=== PATIENT | male | born 1990 | race Caucasian/White ===

== ENCOUNTER 2021-01-26 10:21 | Emergency (ER) | payer BC ==
[2021-01-26] MEDS ORDERED: Sodium Chloride 0.9% 10 ML Syringe FLUSH PRN (11:45)
[2021-01-26] MEDS ORDERED: Ondansetron 4 MG/2 ML SDV IVPUSH ONE (11:45)
[2021-01-26] MEDS ORDERED: Sodium Chloride 0.9% 1,000 ML IV SCH (11:45)
[2021-01-26] MEDS ORDERED: Albuterol/Ipratropium 3.0-0.5 MG/3 ML Neb Soln NEB ONE (11:47)
[2021-01-26] MEDS ORDERED: Dexamethasone 4 MG/ML SDV IVPUSH ONE (11:47)
--- NOTE | 2021-01-26 12:46 | CR ---
Chest: Frontal view of the chest was obtained. Comparison: Prior chest x-ray of 09/21/14. Heart size and mediastinum are within normal limits. Patchy areas of increased density are seen throughout both sides of the chest. Bony structures are unremarkable for the patient's age. Impression: 1. Findings suspicious for COVID pneumonia. Please correlate. Diagnostic code #3
[2021-01-26 15:13] VITALS: BP 119/72; PULSE 75
--- NOTE | 2021-01-26 15:19 | EDM.PDOC ---
ED HPI GENERAL MEDICAL PROBLEM - General Chief Complaint: Respiratory Problem Stated Complaint: COVID +/LOW O2 Time Seen by Provider: 01/26/21 11:33 Source of Information: Reports: Patient History Limitations: Reports: No Limitations - History of Present Illness INITIAL COMMENTS - FREE TEXT/NARRATIVE: The patient presents with cough, shortness of breath and low oxygen saturations. He is COVID 19 positive. He got the monoclonal antibodies yesterday. He has a pulse oximeter and it was low at 85% so he came in to be seen. He has no chest pain. He has no vomiting but he has nausea. He has no abdominal pain. He has chills but no fever. He has no diarrhea. He does not smoke. Onset: Gradual Duration: Day(s): Severity: Moderate Improves with: Reports: None Worsens with: Reports: None Associated Symptoms: Reports: Cough, Nausea/Vomiting, Shortness of Breath. Denies: Chest Pain - Related Data Allergies Allergy/AdvReac Type Severity Reaction Status Date / Time No Known Allergies Allergy Verified 01/26/21 11:30 Home Meds: Home Meds Albuterol [Proventil HFA] 2 puff INH Q4H PRN #1 inhaler 01/26/21 [Rx] Dulaglutide [Trulicity] 0.5 ml SUBCUT WEEKLY 01/26/21 [History] dexAMETHasone [Dexamethasone] 6 mg PO DAILY #10 tab 01/26/21 [Rx] metFORMIN [Glucophage XR] 500 mg PO QID 01/26/21 [History] Past Medical History Gastrointestinal History: Reports: GERD Endocrine/Metabolic History: Reports: Diabetes, Type II Social & Family History - Family History Family Medical History: No Pertinent Family History ED ROS GENERAL - Review of Systems Review Of Systems: See Below Constitutional: Reports: Chills, Malaise, Weakness, Fatigue. Denies: Fever HEENT: Reports: No Symptoms Respiratory: Reports: Shortness of Breath, Cough Cardiovascular: Reports: No Symptoms Endocrine: Reports: No Symptoms GI/Abdominal: Reports: Nausea. Denies: Abdominal Pain, Vomiting : Reports: No Symptoms Musculoskeletal: Reports: No Symptoms ED EXAM, GENERAL - Physical Exam Exam: See Below Exam Limited By: No Limitations General Appearance: Alert, No Apparent Distress Ears: Normal External Exam Nose: Normal Inspection Head: Atraumatic, Normocephalic Neck: Normal Inspection Respiratory/Chest: No Respiratory Distress, Decreased Breath Sounds Cardiovascular: Regular Rate, Rhythm, No Edema, No Murmur GI/Abdominal: Soft, Non-Tender, No Organomegaly, No Mass Back Exam: Normal Inspection Extremities: Normal Inspection Neurological: Alert, No Motor/Sensory Deficits Course - Vital Signs Last Recorded V/S: Last Vital Signs Temp Pulse 75 01/26/21 15:10 Resp 20 01/26/21 15:10 BP 119/72 01/26/21 15:10 Pulse Ox 87 L 01/26/21 15:10 - Orders/Labs/Meds Orders: Active Orders 24 hr Category Date Time Status Cardiac Monitoring [RC] . DIRECTED Care 01/26/21 11:45 Active Peripheral IV Care [RC] . DIRECTED Care 01/26/21 11:47 Active RT Aerosol Therapy [RC] ASDIRECTED Care 01/26/21 11:47 Active Sodium Chloride 0.9% [Normal Saline] 1,000 ml Med 01/26/21 11:45 Active IV .BOLUS Sodium Chloride 0.9% [Saline Flush] Med 01/26/21 11:45 Active 10 ml FLUSH ASDIRECTED PRN ED Antiemetic Medication Reflex [OM.PC] Stat Oth 01/26/21 11:46 Ordered Peripheral IV Insertion Adult [OM.PC] Stat Oth 01/26/21 11:45 Ordered Medication Orders Sodium Chloride (Normal Saline) 1,000 mls @ 1,000 mls/hr IV .BOLUS EDIE Last Admin: 01/26/21 12:02 Dose: 1,000 mls/hr Documented by: JASON Sodium Chloride (Sodium Chloride 0.9% 10 Ml Syringe) 10 ml FLUSH ASDIRECTED PRN PRN Reason: Keep Vein Open Last Admin: 01/26/21 12:02 Dose: 10 ml Documented by: JASON Labs: Laboratory Tests 01/26/21 01/26/21 01/26/21 Range/Units 12:05 12:05 12:05 WBC 8.12 (4.23-9.07) K/mm3 RBC 4.97 (4.63-6.08) M/mm3 Hgb 14.3 (13.7-17.5) gm/dl Hct 43.3 (40.1-51.0) % MCV 87.1 (79.0-92.2) fl MCH 28.8 (25.7-32.2) pg MCHC 33.0 (32.2-35.5) g/dl RDW Std Deviation 40.4 (35.1-43.9) fL Plt Count 273 (163-337) K/mm3 MPV 9.4 (9.4-12.3) fl Neut % (Auto) 58.8 (34.0-67.9) % Lymph % (Auto) 31.4 (21.8-53.1) % [place] % (Auto) 9.2 (5.3-12.2) % Eos % (Auto) 0 L (0.8-7.0) Baso % (Auto) 0.4 (0.1-1.2) % Neut # (Auto) 4.77 (1.78-5.38) K/mm3 Lymph # (Auto) 2.55 (1.32-3.57) K/mm3 [place] # (Auto) 0.75 (0.30-0.82) K/mm3 Eos # (Auto) 0.00 L (0.04-0.54) K/mm3 Baso # (Auto) 0.03 (0.01-0.08) K/mm3 D-Dimer, Quantitative 0.37 (0.19-0.50) mg/L Sodium 142 (136-145) mEq/L Potassium 3.5 (3.5-5.1) mEq/L Chloride 103 (98-107) mEq/L Carbon Dioxide 27 (21-32) mEq/L Anion Gap 15.5 H (5-15) BUN 10 (7-18) mg/dL Creatinine 0.9 (0.7-1.3) mg/dL Est Cr Clr Drug Dosing TNP Estimated GFR (MDRD) > 60 (>60) mL/min BUN/Creatinine Ratio 11.1 L (14-18) Glucose 111 H (70-99) mg/dL Calcium 8.7 (8.5-10.1) mg/dL Total Bilirubin 0.8 (0.2-1.0) mg/dL AST 37 (15-37) U/L ALT 80 H (16-63) U/L Alkaline Phosphatase 71 (46-116) U/L Troponin I < 0.017 (0.00-0.056) ng/mL C-Reactive Protein 11.0 H* (<1.0) mg/dL Total Protein 7.7 (6.4-8.2) g/dl Albumin 3.6 (3.4-5.0) g/dl Globulin 4.1 gm/dL Albumin/Globulin Ratio 0.9 L (1-2) Meds: Medications Generic Name Dose Route Start Last Admin Trade Name Subhash PRN Reason Stop Dose Admin Sodium Chloride 1,000 mls @ 1,000 mls/hr 01/26/21 11:45 01/26/21 12:02 Normal Saline IV 1,000 mls/hr .BOLUS EDIE Administration Sodium Chloride 10 ml 01/26/21 11:45 01/26/21 12:02 Sodium Chloride 0.9% 10 Ml Syringe FLUSH 10 ml ASDIRECTED PRN Administration Keep Vein Open Discontinued Medications Generic Name Dose Route Start Last Admin Trade Name Subhash PRN Reason Stop Dose Admin Albuterol/Ipratropium 3 ml 01/26/21 11:47 01/26/21 11:53 Albuterol/Ipratropium 3.0-0.5 Mg/3 Ml Neb Soln NEB 01/26/21 11:48 3 ml ONETIME ONE Administration Dexamethasone 6 mg 01/26/21 11:47 01/26/21 12:02 Dexamethasone 4 Mg/Ml Sdv IVPUSH 01/26/21 11:48 6 mg ONETIME ONE Administration Ondansetron HCl 4 mg 01/26/21 11:45 01/26/21 12:02 Ondansetron 4 Mg/2 Ml Sdv IVPUSH 01/26/21 11:46 4 mg ONETIME ONE Administration - Re-Assessments/Exams Free Text/Narrative Re-Assessment/Exam: 01/26/21 15:21 I ordered an IV NS 1L bolus, zofran 4mg IV, dexamethasone 6mg IV, duoneb, CXR and labs. His CXR shows findings suspicious for COVID pneumonia. His CBC and CMP look good. His D-dimer was negative. His troponin was negative. His CRP was elevated at 11. His oxygen saturations did drop to 87%. I will get him some home oxygen, albuterol inhaler and dexamethasone. Departure - Departure Time of Disposition: 15:25 Disposition: Home, Self-Care 01 Condition: Fair Clinical Impression: COVID-19, Pneumonia due to COVID-19 virus - Discharge Information *PRESCRIPTION DRUG MONITORING PROGRAM REVIEWED*: Not Applicable *COPY OF PRESCRIPTION DRUG MONITORING REPORT IN PATIENT [place]: Not Applicable Prescriptions: dexAMETHasone [Dexamethasone] 6 mg PO DAILY #10 tab Albuterol [Proventil HFA] 2 puff INH Q4H PRN #1 inhaler PRN Reason: Shortness Of Breath Referrals: PCP,None [Primary Care Provider] - Holden Hanna MD [Physician] - 1 Week Forms: ED Department Discharge Additional Instructions: Take the dexamethasone 1.5pills daily until gone. Use the albuterol 2 puffs every 6 hours as needed for shortness of breath. Wear the oxygen all the time for few days. Please return if you are worse. Sepsis Event Note (ED) - Focused Exam Vital Signs: Vital Signs Pulse Resp BP Pulse Ox Pulse Ox 01/26/21 15:10 75 20 119/72 87 L 01/26/21 11:54 95 01/26/21 11:26 90 16 126/81 95 - My Orders Last 24 Hours: My Active Orders 01/26/21 11:45 Cardiac Monitoring [RC] . DIRECTED Sodium Chloride 0.9% [Normal Saline] 1,000 ml IV .BOLUS Sodium Chloride 0.9% [Saline Flush] 10 ml FLUSH ASDIRECTED PRN Peripheral IV Insertion Adult [OM.PC] Stat 01/26/21 11:46 ED Antiemetic Medication Reflex [OM.PC] Stat 01/26/21 11:47 Peripheral IV Care [RC] . DIRECTED RT Aerosol Therapy [RC] ASDIRECTED - Assessment/Plan Last 24 Hours: My Active Orders 01/26/21 11:45 Cardiac Monitoring [RC] . DIRECTED Sodium Chloride 0.9% [Normal Saline] 1,000 ml IV .BOLUS Sodium Chloride 0.9% [Saline Flush] 10 ml FLUSH ASDIRECTED PRN Peripheral IV Insertion Adult [OM.PC] Stat 01/26/21 11:46 ED Antiemetic Medication Reflex [OM.PC] Stat 01/26/21 11:47 Peripheral IV Care [RC] . DIRECTED RT Aerosol Therapy [RC] ASDIRECTED
== END 2021-01-26 16:45 | disposition home or self-care (01) ==
LOC: JD.ED 10:21
DX: U07.1 COVID-19 (principal); J12.82 Pneumonia due to coronavirus disease 2019; K21.9 Gastro-esophageal reflux disease without esophagitis; E11.9 Type 2 diabetes mellitus without complications; Z79.84 Long term (current) use of oral hypoglycemic drugs; Z79.899 Other long term (current) drug therapy
CPT/HCPCS: 36415; 71045; 80053; 84484; 85025; 85379; 86140; 94640; 96374; 96375; 99285; J1100; J2405; J7030; J7620-GY